=== PATIENT | male | born 1975 | race Two or more races ===

== ENCOUNTER 2016-10-10 17:18 | Emergency (ER) | payer SELFPAY ==
[~2016-10-10] VITALS: Ht 165.1 cm; Wt 75.0 kg
[2016-10-10 17:29] VITALS: Ht 165.1 cm; Wt 75.0 kg
--- NOTE | 2016-10-10 17:45 | ERD ---
ER Documentation Chief Complaint Date/Time DATE: 10/10/16 TIME: 17:42 Chief Complaint etoh intoxication, in front of [employer] HPI 40-year-old male brought in via EMS as a wonderful innocent bystander called 911 because the patient was intoxicated in front of a laundromat. The patient initially reported alcohol use but denies this upon arrival. He has small abrasions to his head that appear to be subacute. Accu-Chek in the field was greater than 80. Remainder of HPI is dramatically limited given the patient's intoxication. ROS Intoxicated, limited Medications Home Meds Unable to Obtain Active Prescriptions or Reported Meds PMhx/Soc Medical and Surgical Hx: pt denies Surgical Hx Hx Alcohol Use: Yes Hx Substance Use: No Smoking Status: Never smoker FmHx Intoxicated, limited Physical Exam Vitals Vital Signs Date Time Temp Pulse Resp B/P Pulse Ox O2 Delivery O2 Flow Rate FiO2 10/10/16 17:29 97.7 86 130/82 99 Physical Exam General: Smells of alcohol intoxicated, responsive to verbal stimuli Head: Small abrasion noted to the left periorbital region, right zygomatic arch with associated hematomas, appear to be subacute Eyes: Pupils equally reactive, EOM intact ENT: Moist mucous membranes Neck: Supple, no lymphadenopathy Respiratory: Lungs clear bilaterally, no distress Cardiovascular: RRR, no murmurs, rubs, or gallops Abdominal: Soft, non-tender, non-distended, no peritoneal signs : Deferred MSK: No edema, no unilateral swelling, 5/5 strength Neurologic: Intoxicated but responsive, moving all extremities, slurred speech, no focal weakness Skin: Old abrasions noted to bilateral periorbital regions Psych: Intoxicated Results 24 hrs Laboratory Tests Test 10/10/16 17:33 10/10/16 17:50 Bedside Glucose 75mg/dL Ethyl Alcohol Level 391.0mg/dl [facility] EKG, MONITORS, & DIAGNOSTIC IMAGING: CT brain: IMPRESSION: No mass effect or acute intracranial bleed. Unremarkable CT brain. RPTAT: PP CT facial bone: IMPRESSION: 1. No evidence for acute fractures or dislocations. 2. Mild chronic right maxillary sinus disease and bilateral chely bullosa 3. 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 No visualized fracture or dislocation. 2. Mild broad-based disk protrusion at C4-C5, and mild disk osteophyte complex at C5-C6. Associated mild appearing central canal stenosis at C4-C5 and C5-C6. 3. No visualized fracture or dislocation. RPTAT: PP LAB INTERPRETATION: Elevated alcohol level MEDICAL DECISION MAKING: The patient's presentation is consistent with acute alcohol intoxication. The patient does however have evidence of possible blunt facial trauma, this appears to be subacute but given the patient's intoxication, cannot rule out acute intracranial process. CT imaging of the head face and cervical spine would be appropriate. I have a much lower clinical concern for clinically significant traumatic brain injury, meningitis, significant electrolyte disturbance The patient's workup will include appropriate laboratory testing and diagnostic imaging, as well as observation for sobriety. The patient's presentation is most consistent with acute alcohol intoxication leading to acute encephalopathy. The patient is protecting their airway. The patient has no signs or symptoms concerning for impending respiratory failure and does not require intubation at this time. The patient will require observation in the emergency room to allow for metabolization. Once the patient is able to ambulate on their own accord, navigate the community the patient can be safely discharged from the emergency room. ER COURSE: Alcohol level elevated and consistent with patient's level of intoxication. CT imaging is negative. Patient pending sobriety. Observation Note: Indication: Acute alcohol intoxication Duration: Greater than 4 hours Family history: As documented above The patient was observed with serial exams over the above timeframe. The patient continued to be well-appearing, and observation continued without complication. I kept the patient and/or family informed of laboratory and diagnostic imaging results throughout the emergency room course. DISPOSITION PLAN: Pending sobriety. Patient endorsed overnight physician for reevaluation and anticipate discharge home. Departure Diagnosis: Primary Impression: Acute alcohol intoxication Complication of substance-induced condition: uncomplicated Qualified Code: F10.120 - Acute alcohol intoxication, uncomplicated Additional Impression: Closed head injury Encounter type: initial encounter Qualified Code: S09.90XA - Closed head injury, initial encounter Condition: JOSE Theodore MD Oct 10, 2016 17:45
--- NOTE | 2016-10-10 18:54 | RADRPT ---
PROCEDURE: CT Head without contrast. CLINICAL INDICATION: Trauma, pain TECHNIQUE: Continuous axial CT images were obtained from the base of skull to the vertex. No cont rast was administered. The calculated radiation dose measures 900 mGy centimeters. The CTDI measures 45 mGy COMPARISON: No prior studies are available for comparison. FINDINGS: The ventricles are symmetric and normal in size. There is no mass effect or midline shift. There i s no abnormal intra-axial or extra-axial fluid collection. There is no evidence of intracranial hem orrhage. There are no abnormal areas of increased or decreased attenuation in the brain parenchyma. The bony calvarium is intact. The orbital soft tissue contents are unremarkable. Paranasal sinuses appear clear IMPRESSION: No mass effect or acute intracranial bleed. Unremarkable CT brain. RPTAT: PP .Rg Schuster MD, Date Time Electronically viewed and signed by .Rg Schuster MD, on 10/10/2016 18:53 .T/
--- NOTE | 2016-10-10 19:02 | RADRPT ---
PROCEDURE: CT Cervical Spine without contrast. CLINICAL INDICATION: Injury, pain TECHNIQUE: Multiple axial cuts through the cervical spine with coronal and sagittal reformats were obtained without contrast. The calculated radiation dose measures 76 mGy centimeters. The CTDI gregorio ures 22 mGy COMPARISON: None available FINDINGS: There is a normal cervical lordosis. There is no evidence of subluxation. There is normal height of the vertebral bodies. There is mild disk space narrowing at C5-C6.. There is no bone destruction o r sclerosis. There is no dislocation or fracture. The atlantoaxial articulation appears normal. There is normal craniocervical alignment. There is a mild broad-based disk protrusion at C4-C5, 2 mm. There is a mild disk osteophyte complex at C5-C6, 3 mm. There is no significant facet hypertrophy. There is mild appearing central canal stenosis at C4-C5 and C5-C6. There is no significant bony foraminal stenosis identified. There is no abnormal paravertebral soft tissue mass. IMPRESSION: 1. No visualized fracture or dislocation. 2. Mild broad-based disk protrusion at C4-C5, and mild disk osteophyte complex at C5-C6. Associate d mild appearing central canal stenosis at C4-C5 and C5-C6. 3. No visualized fracture or dislocation. RPTAT: PP .Rg Schuster MD, MD Date Time Electronically viewed and signed by .Rg Schuster MD, MD on 10/10/2016 19:02 .T/
--- NOTE | 2016-10-10 19:43 | RADRPT ---
PROCEDURE: CT facial bones CLINICAL INDICATION: Pain status post trauma TECHNIQUE: A CT of the facial bones was performed on a GE 64-slice CT scanner utilizing high-resol ution axial images. Sagittal, coronal, and multiplanar reformatted images were made. Additionally, 3-D reformatted images were made. The CTDIvol is 29.48 mGy and the DLP is 555.42 mGy-cm. COMPARISON: Brain CT same date FINDINGS: The visualized scalp and calvarium are normal. Are normal. The bilateral paranasal sinuses demonst rate mild right maxillary chronic mucoperiosteal disease and bilateral contra bullosa. No acute air fluid levels are present. The medeiros of the bony orbits are intact. The bilateral globes, intracon al and extraconal spaces are normal. No evidence for acute fractures are present. The bilateral pterygoid plates are normal. The bilate ral zygomatic arches and medeiros of the bilateral frontal, ethmoid, maxillary and sphenoid sinuses are intact. The bilateral mastoid air cells and middle ear cavities are clear. The nasal septum appro ximates the midline. The bilateral ostiomeatal complexes are patent. The nasal bones demonstrate m inimal deformity which may reflect prior or chronic fracture. Periodontal disease is noted of dentition #22 utilizing the ADA nomenclature. The limited evaluatio n of the soft tissues are normal. IMPRESSION: 1. No evidence for acute fractures or dislocations. 2. Mild chronic right maxillary sinus disease and bilateral chely bullosa 3. 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 RPTAT: HDC .Vivi Gallegos MD, Date Time Electronically viewed and signed by .Vivi Gallegos MD, MD on 10/10/2016 19:42 .C/
[2016-10-10 21:51] VITALS: BP 118/62; PULSE 102; RESP 18
== END 2016-10-11 00:15 | disposition home or self-care (01) ==
LOC: E/R 17:18
DX: F10.120 Alcohol abuse with intoxication, uncomplicated (principal); R40.2252 Coma scale, best verbal response, oriented, at arrival to emergency department; S00.91XA Abrasion of unspecified part of head, initial encounter; R40.2142 Coma scale, eyes open, spontaneous, at arrival to emergency department; R40.2362 Coma scale, best motor response, obeys commands, at arrival to emergency department; R51 Headache; X58.XXXA Exposure to other specified factors, initial encounter; Y92.9 Unspecified place or not applicable
CPT/HCPCS: 70450; 70486; 72125; 80306; 82962